=== PATIENT | female | born 1985 | race Caucasian/White ===

== ENCOUNTER 2023-09-28 23:47 | Emergency (ER) | payer OTHER, SELFPAY ==
[2023-09-29 00:05] VITALS: BP 116/72; PULSE 70; RESP 18; TEMP 36.9; O2SAT 96; BMI 29.4
--- NOTE | 2023-09-29 00:52 | ED.GENADULT ---
HPI - General Adult General Chief complaint: Fall/Minor Trauma Stated complaint: Fell down stairs and hurt her ankle - R Time Seen by Provider: 09/29/23 00:44 History of Present Illness HPI narrative: Walking down basement stairs with light off , misjudged steps and fell two steps. states the next thing she knew she was on her back, hurt her ankle. denies hitting head. states I think I may also have pink eye, but that's a separate issue. landed on carpet. presents with ice to ankle/ foot. states she took two aleve prior to arrival. rates pain 2 at rest, 9 when standing. 38-year-old woman presenting to the emergency department after falling down some stairs hurting her right ankle. Misjudged stairs when going down the basement the light out and she fell. Did not hit her head. There was no loss of conscious. No neck pain. Unclear mechanism of how she hurt her ankle. It sounds as though his may have been an inversion injury. With a great deal to bear weight. Has been icing and took Aleve. Incidentally also has thinking she might have pinkeye. Not noting allergies. Day of eye itchiness primarily. Review of Systems Status of ROS: Reports: 6 or more systems reviewed and unremarkable except as noted in History and below PFSH PFS Social History Smoking Status: Never smoker Do you use any of these nicotine containing products: None Non-prescribed substance use: denies use Exam Narrative: Exam Narrative: Pleasant. NAD. Head is atraumatic. Examination of the ankle in question right ankle does show tenderness about the bony lateral malleolus not just in the soft tissues. No navicular tenderness. No base of 5th metatarsal tenderness. No medial malleolar tenderness. No laxity to varus or valgus stressors or AP stress. There is soft tissue swelling anterior to the lateral malleolus I do not appreciate much redness about the eyes at this point. No swelling or erythema in the periorbital tissues. Const: Vital Signs, click to edit/add: Vital Signs - 24 hr 09/29/23 00:05 Temperature 98.4 F Pulse Rate [Left P ulse Oximeter] 70 Respiratory Rate 18 Blood Pressure [Ri ght Upper Arm] 116/72 Pulse Oximetry 96 Oxygen Delivery Me thod Room Air Documenting provider has reviewed patient's vital signs: yes Course Vital Signs Vital signs: Initial Vital Signs Temperature 98.4 F 09/29/23 00:05 Temperature Source Temporal Artery Scan 09/29/23 00:05 Pulse Rate 70 09/29/23 00:05 Pulse Rhythm Regular 09/29/23 00:05 Respiratory Rate 18 09/29/23 00:05 Blood Pressure 116/72 09/29/23 00:05 Blood Pressure Mean 86 09/29/23 00:05 Blood Pressure Position Supine 09/29/23 00:05 Pulse Oximetry 96 09/29/23 00:05 Oxygen Delivery Method Room Air 09/29/23 00:05 Vital Signs Temperature 98.4 F 09/29/23 00:05 Pulse Rate 70 09/29/23 00:05 Respiratory Rate 18 09/29/23 00:05 Blood Pressure 116/72 09/29/23 00:05 Pulse Oximetry 96 09/29/23 00:05 Oxygen Delivery Method Room Air 09/29/23 00:05 Temperature 98.4 F 09/29/23 00:05 Pulse Rate 70 09/29/23 00:05 Respiratory Rate 18 09/29/23 00:05 Blood Pressure 116/72 09/29/23 00:05 Pulse Oximetry 96 09/29/23 00:05 Oxygen Delivery Method Room Air 09/29/23 00:05 Medical Decision Making MDM Narrative Medical decision making narrative: With bony tenderness cannot clear ankle with [place] ankle rules. X-ray of the right ankle three view reviewed by me shows soft tissue swelling but I do not appreciate any acute bony abnormality Otherwise may be evolving a mild conjunctivitis likely viral. I hoped to supply with an Aircast here but we do not have any available. See patient discharge plan for further discussion Discharge Plan Discharge Clinical Impression: Ankle sprain, Eye irritation Patient Disposition: Home w/ Parent or Adult Condition: Stable Additional Instructions: Elevation and compression as discussed. Try to ice your ankle 2-3 times daily over the next few days. As I said I like those ice packs with screw top lids -- fill with ice and water. 6 inch Jono wrap as supplied to wrap it onto your ankle. Use crutches to get about for the majority of this next week. You might want to get an Aircast to support early mobility. I would not however try to do much walking at all on your ankle over the next 2-3 days. See handout on ankle sprain for rehabilitation recommendations. Follow-up if simply not improved in about 10 days. Generic eye ointment or refresh p.m. drops might be helpful for lubrication for your eye if it starts to get red. Watch for marked increase in swelling or redness or pain surrounding your eye or copious purulent drainage. Follow Up/Referrals: Provider,Not a Local [Primary Care Provider] - Stand Alone Forms: [employer] Info Instructions
--- NOTE | 2023-09-29 01:01 | CRLHL7_ITS ---
For Patients: As a result of the Cures Act, medical imaging exams and procedure reports are released immediately into your electronic medical record. You may view this report before your referring provider. If you have questions, please contact your health care provider. Indication: Lateral malleolar pain Technique: Three views of the right ankle Comparison: None Findings/Impression: Slight swelling along the anterior ankle with no evidence of an acute fracture or dislocation. Dictated by Lamine Bennett MD @ 09/29/2023 1:47:45 AM (Electronically Signed)
--- OUTSIDE RECORDS SUMMARY | 2023-09-29 01:09 | XMS_ITS | Patient Health Record ---
Author Organization [facility] Address [address] [place] [address] Care Team Providers Care Briar Shop Supervisor Name Role Phone Needed, Needed Primary Care Provider UnavailKEELEY Pham Unavailable [phone] ELSA MARTINEZ Unavailable [phone] Thi Arnett Unavailable [phone] Allergies No Known Allergies Reason For Referral No Information Medications Medication SIG (Take, Route, Frequency, Duration) Notes Start Date End Date Status Fluticasone Propionate 50 MCG/ACT 2 sprays Nasally Once a day for 30 day(s) 07/31/2023 Active Social History Tobacco Use: Social History Observation Description Date Details (start date - stop date) Never Smoker NA - NA Tobacco Control (Standard) Question Answer Notes Tobacco use: Nonsmoker Problems Problem Type SNOMED Code ICD Code Onset Dates Problem Status W/U Status Risk Notes Problem 15452156 Snoring (R06.83) Active confirmed Problem 29118997 Dysphonia (R49.0) Active confirmed Problem 824064423 Nasal septal deviation (J34.2) Active confirmed Problem 407230765 Nasal obstruction (J34.89) Active confirmed Problem 4346576 Weakness of voice (R49.8) Active confirmed Problem 566749650 Nasal valve collapse (M95.0) Active confirmed Vital Signs Height-cm 168.91 cm 08/12/2023 Weight-kg 84.01 kg 08/12/2023 Height 66.5 in 08/12/2023 Weight 185.2 lbs 08/12/2023 BMI 29.44 kg/m2 08/12/2023 Procedures Procedure Date Ordered Date Performed Result Body Sit e LARYNGOSCOPY, FLEXIBLE FIBEROPTIC 07/31/2023 08/01/2023 N/A RADIAL 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 PRESS OPERATOR FOR PLASTIC VOICE - Evaluation and Treatment 07/31/2023 08/02/2023 N/A RADIAL DRILL PRESS OPERATOR FOR PLASTIC VOICE - Videostroboscopy 4% Lidocaine , Nasal decongestant 07/31/2023 08/02/2023 N/A Surgery 08/12/2023 08/20/2023 scheduled 09/19/23 Encounters Encounter Location Date Provider Diagnosis [facility] [place] [id number] [place] [address] [address] [place] [address] 07/31/2023 KEELEY COPELAND Nasal obstruction J34.89 ; Nasal septal deviation J34.2 ; Nasal valve collapse M95.0 ; Weakness of voice R49.8 and Snoring R06.83 [facility] [address] [place], [place] [address] [address] [place] [address] 08/12/2023 Thifrank العليMelquiades Dysphonia R49.0 and Weakness of voice R49.8 [facility] [address] [place] [address] 08/12/2023 ELSA MARTINEZ Nasal valve collapse M95.0 ; Deviated septum J34.2 and Nasal turbinate hypertrophy J34.3 [facility] [place] [address] [address] 08/14/2023 Thirfank Arnett Dysphonia R49.0 and Weakness of voice R49.8 [facility] [address] [place] [address] 09/09/2023 ELSA MARTINEZ [facility] [address] [place], [place] [address] [address] [place] [address] 08/19/2023 KEELEY COPELAND Assessments Encounter Date Diagnosis (ICD Code) Assessment Notes Treatment Notes Treatment Clinical Notes 07/31/2023 Nasal septal deviation (ICD-10 - J34.2) 07/31/2023 Nasal obstruction (ICD-10 - J34.89) 08/12/2023 Nasal valve collapse (ICD-10 - M95.0) We discussed today's examination. She has bilateral valve collapse with inspiration. The modified Amanda maneuver is positive bilaterally. Stabilizing the external nasal valve with inspiration improve her nasal breathing. In addition she was found to have a deviated septum and turbinate hypertrophy despite medical management. I have recommended bilateral nasal valve repair with implant, septoplasty, bilateral submucous resection inferior nasal turbinates. We discussed the risks and benefits of the procedure. The risks include but are not limited to bleeding, infection, scarring, asymmetry or flow through the nose after surgery, the potential for damage to the septum such as hematoma or perforation, implant extrusion or visibility, implant infection, and need for implant removal along with possible revision surgery. She expressed understanding. 08/12/2023 Dysphonia (ICD-10 - R49.0) 3-4 visits are recommended to address goals listed below. Px is judged to be excellent due to high patient motivation and stimulability for improved phonation during sustained /z/ vs /a/. Videostrobe images were reviewed in detail with the patient with good understanding shown. Patient will show a good understanding of optimum vocal hygiene patterns with min cues: Patient will show 100% accy with laryngeal massage and other manual techniques with min cues: Patient will show 90% accy with semi-occluded vocal tract exercises with min cues: Patient will show 90% accy with resonant voice/increased vocal loudness/energy during conversational speech with min cues 08/12/2023 Weakness of voice (ICD-10 - R49.8) 08/14/2023 Dysphonia (ICD-10 - R49.0) Cont plan. Expand SOVT exercises. Consider adding SCM stretches, manual techniques, upper body stretches. Advance RV to chant, words, phrases, etc. Consider vocal communicators 08/12/2023 Deviated septum (ICD-10 - J34.2) 08/12/2023 Nasal turbinate hypertrophy (ICD-10 - J34.3) 08/14/2023 Weakness of voice (ICD-10 - R49.8) 07/31/2023 Nasal valve collapse (ICD-10 - M95.0) 07/31/2023 Weakness of voice (ICD-10 - R49.8) 07/31/2023 Snoring (ICD-10 - R06.83) 07/31/2023 Other Body mass index material was published 08/12/2023 Other Body mass index material was published Plan Of Treatment Next Appt Details Provider Name:ELSA PACE ON, 10/01/2023 09:30:00 AM, [address], [place], [address], Provider Name:ELSA PACE ON, 10/07/2023 01:00:00 PM, [address], [address], [place], [address], Insurance Providers Payer Name Payer Address Payer Phone Subscriber Number Group Number Insured Name Patient Relationship to Insured Coverage Start Date Coverage End Date [facility] [address] ZOFIA MCALLISTER [id number] Fany Gaines Self - patient is the insured Medical (General) History Medical History History ICD Code anxiety depression sleep apnea Surgical History Surgery Date(Month/Year) hysteroscopy
--- OUTSIDE RECORDS SUMMARY | 2023-09-29 01:09 | XMS_ITS | Clinical Summary ---
Author Organization [facility] Address [address] [place] [address] Care Team Providers Care Oracle Soa Developer Name Role Phone Prtii Castano MD Primary Care Provider [phone] Source Comments You are receiving this document as you are listed as the primary care provider,follow-up provider, or the patient has been referred to you for consultation.This is in compliance with the Medicare andKindred Healthcarecaid EHR Incentive Program,which states Providers who transition their patient to another setting of careor provider of care or refers their patient to another provider of care shouldprovide summary care record for each transition of care or referral. [facility] Allergies No known active allergies Medications Medication Sig Dispensed Refills Start Date End Date Status letrozole (FEMARA) 2.5 MG tablet Take 2 tablets by mouth daily as directed* Active APRI 0.15-30 MG-MCG tablet Take 1 Tablet by mouth daily. 01/11/2023 Active OVIDREL 250 MCG/0.5ML injection INJECT 250 MCG SUB-EVERY ONCE DIRECTED Active omeprazole (PRILOSEC) 20 MG capsuleIndications:A bdominal pain, left upper quadrant Take 1 Capsule (20 mg) by mouth daily. Take 1 hour before a meal. 90 Capsule 3 02/07/2023 Active sucralfate (CARAFATE) 1 g tabletIndications:Ab dominal pain, left upper quadrant Take 1 Tablet (1 g) by mouth daily at bedtime. 90 Tablet 1 02/07/2023 Active tiZANidine (ZANAFLEX) 2 MG tabletIndications:Mu scle spasm Take 0.5-2 Tablets (1-4 mg) by mouth every 6 hours as needed. 45 Tablet 1 02/07/2023 Active metFORMIN XR (GLUCOPHAGE XR) 500 MG 24 hour release tabletIndications:Hi story of PCOS Take 1 Tablet (500 mg) by mouth once every evening with a meal. 90 Tablet 3 08/20/2023 Active Active Problems Problem Noted Date Diagnosed Date Polycystic ovary syndrome 01/15/2023 Male infertility 01/15/2023 History of PCOS 01/22/2022 Irregular periods 01/22/2022 Encounters Date Type Department Care Team Description 08/18/2023 Refill [facility] [address] [place] [address] Priti Castano MD Refill (metFORMIN XR (GLUCOPHAGE XR) 500 MG 24 hour release tablet [Pharmacy Med Name: metFORMIN HCl ER Oral Tablet Extended Release 24 Hour 500 MG]) from Last 3 Months Immunizations Name Administration Dates Next Due Influenza (Flucelvax), Preserv Free QIV 05/06/19 20 Influenza IIV4 (Quadrivalent) 0.5mL (49398) 02/07 Pfizer Monovalent 12+ Purple Top 03/08/2021,07/07,07/04/2020 Family History Relation Name Status Comments Father Alive Mother Alive Social History Tobacco Use Types Packs/Day Years Used Date Smoking Tobacco: Never Passive Smoke Exposure: Never Smokeless Tobacco: Never Tobacco Cessation:Counseling Given: Not Answered Alcohol Use Standard Drinks/Week Comments Yes 2 (1 standard drink = 0.6 oz pur e alcohol) 7 drinks per week PHQ-2 Answer Date Recorded PHQ-2 Score 0 02/07/2023 Sex and Gender Information Value Date Recorded Sex Assigned at Not on file Gender Identity Not on file Sexual Orientation Not on file Last Filed Vital Signs Vital Sign Reading Time Taken Comments Blood Pressure 113/73 02/07/2023 2:12 PM CDT Pulse 62 02/07/2023 2:12 PM CDT Temperature - - Respiratory Rate - - Oxygen Saturation - - Inhaled Oxygen Concentration - - Weight 81.6 kg (180 lb) 02/07/2023 2:12 PM CDT Height 168.9 cm (5' 6.5) 02/07/2023 2:12 PM CDT Body Mass Index 28.62 02/07/2023 2:12 PM CDT Plan of Treatment Health Maintenance Due Date Last Done Comments Hep C Screening (Preventive Services) 1985 DTaP/Tdap/Td (1 - Tdap) 2004 HepB (1) 2004 Cervical Cancer Screening 12/01/20222021 (Completed) COVID-19 Vaccine (4 - 2022-2 4 season) 2022 03/08/2021, 07/25/2020, 07/04/2020 Influenza (Season Ended) 2023 022, 05/06/2019 Adult Preventive Visit 01/18/2024 , 01/17/2022 (Completed) Diabetes Screening- (based o n age and BMI) 09/14/2025 09/14/2022 Zoster/Shingles (1 of 2) 2035 HIV Screening (Preventive Services) Completed 05/08/2016 (Completed) HPV Vaccine Aged Out No longer eligi ble based on patient's age to complete this topic HepA Aged Out No longer eligi ble based on patient's age to complete this topic Hib Aged Out No longer eligi ble based on patient's age to complete this topic IPV (Polio) Aged Out No longer eligi ble based on patient's age to complete this topic MCV4 Aged Out No longer eligi ble based on patient's age to complete this topic Pneumococcal Aged Out No longer eligi ble based on patient's age to complete this topic Procedures Procedure Name Priority Date/Time Associated Diagnosis Comments HGB A1C Routine 09/14/2022 11:20 AM CDT Irregular periods from Last 3 Months or Most Recently Relevant to Health Maintenance Results * Hgb A1C (Expected: Now) - Collect in Lab (09/14/2022 11:20 AM CDT) Hemoglobin A1C 5.3 <=5.6 % 09/14/2022 4:48 PM CDT [facility] Estimated Average Glucose (Calc) 105 < 117 mg/dL 09/14/2022 4:48 PM CDT [facility] Comment:Estimated average gl ucose (eAG) converts A1c into glucose units (mg/dL) and estimates average glucose over the past approximately 3 months. The eAG reference interval (<117 mg/dL) corresponds to an A1c of <5.7%. Blood Venipuncture / Unknown 09/14/2022 11:20 AM CDT 09/14/2022 11:20 AM CDT Priti Castano MD LAB_1 [facility] [address] [address], [facility] [phone] from Last 3 Months or Most Recently Relevant to Health Maintenance Care Teams Oracle Soa Developer Relationship Specialty Start Date End Date Priti Castano MD [address] [place] [address] PCP - General Family Practice 03/23/22
--- OUTSIDE RECORDS SUMMARY | 2023-09-29 01:09 | XMS_ITS | Data Portability ---
Author Organization COLIN Cristobal BAG SEWER, [id number] Address 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 Name Role Phone [facility] Primary Care Provider Assessment Encounter Date Assessment Date Assessment LastModified by Organization Details LastModified Time 01/30/2022 01/30/2022 I spent a total of 30 minutes providing care for this patient including: preparing to see the patient, obtaining a medical history, completing a medically appropriate physical exam, completing documentation of visit information and plans in the EMR, counseling the patient and/or caregiver regarding her diagnosis, treatment options and follow up plans, as well as any necessary communication of subsequent test results to the patient, reviewing medical records, , [email or web address] Not available 01/30/2022 14:11:03 Plan of Treatment Reminders Order Date Submit Date Provider Last Modified By Organization Details Last Modified Time Details Appointments None recorded. Lab surgical pathology study 2023 024 [facility], [address] [place] [address], [address], [place], [address], 4 14:19:18 CT + NG DNA, PCR, unspecified specimen 2022 023 [facility], [address] [place] [address], [address], [place], [address], 3 13:55:43 hemoglobin A1c, QN, blood 2021 022 [facility], [address] [place] [address], [address], [place], [address], 21:42:25 dhea-sulfat e, serum 2021 [facility], [address], [address], [place], [address], 15:54:36 17-hydroxyp rogesterone , QN, serum 2021 [facility], [address], [address], [place], [address], 15:56:37 testosteron e, free + total, w/ shbg, serum 2021 [facility], [address], [address], [place], [address], 15:57:37 anti-luna santa hormone (amh), serum 2021 [facility], [address], [address], [place], [address], 15:58:25 glucose, serum or plasma 2021 [facility], [address] , [place], [address], 09:11:43 lipid panel, serum 2021 [facility], [address], [place], [address], 09:11:41 CT + NG RNA, PCR, unspecified specimen 2021 [facility], [address] [place], [address], 09:11:42 hepatitis C Ab, signal-to-c utoff, serum or plasma 2021 022 [facility], [address], [place], [address], 2 09:11:43 HBsAg (hepatitis B surface Ag), EIA, serum 2021 [facility], [address], [place], [address], 2 09:11:44 RPR (rapid plasma reagin), serum 2021 [facility], [address] [facility], [place], [address], 09:11:42 HIV 1 + 2, meaningful use set 2021 [facility], [address], [place], [address], 2 09:11:43 pap, IG + reflex HPV (16+18+45) 2021 [email or web address], [address], [place], [address], 16:11:05 Referral None recorded. Procedures hysteroscop y, surgical; with biopsy of endometrium and/or polypectomy (PROC) 2023 024 [id number] rtners[facility] [facility], [facility] [facility], [address], [place], [address], 4 02:53:30 therapeutic activities, direct patient contact (PROC) 2023 024 [email or web address] [id number] rt[facility], [address] [facility], [address], [place], [address], 4 09:56:18 venipunctur e routine (PROC) 2021 022 [email or web address] Not available 13:27:42 Surgeries None recorded. Imaging US, pelvis 2021 022 [email or web address] [id number] rtners_berna le, [address] [facility], [address], [place], [address], 2 17:49:19 US, transvagina l 2021 022 [email or web address] rtners[facility] o[facility], [address] [facility], [address], [place], [address], 2 11:38:19 US, transvagina l 2021 022 DAQUAN [id number] rtners[facility], [address] [facility], [address], [place], [address], 2 13:16:01 US, pelvis 2021 022 [email or web address] [id number] rtners[facility], [address] [facility], [address], [place], [address], 2 12:51:58 Medication Orders ketorolac 60 mg/2 mL intramuscul ar solution 2023 024 [email or web address] Not available 4 10:22:48 oxycodone 5 mg tablet 2022 023 [facility], [address] [facility], [place], [address], 3 13:38:49 Microgestin 1/20 (21) 1 mg-20 mcg tablet 2021 022 [id number], [address] [place], [id number], 12:47:28 Patient TargetsNo targets recorded. Patient Instructions Encounter Date Encounter Id Patient Instructions Last Modified By Organization Details Last Modified Time 01/15/2023 [id number] A healthy lifest yle: care instructions calbertin Not available 01/15/2023 13:38:46 skin cancer prevention: care instructions calbertin Not available 01/15/2023 13:38:46 Well Visit, Ages 18 to 65: Care Instructions calbertin Not available 01/15/2023 13:38:47 gonorrhea and chlamydia: about these tests calbertin Not available 01/15/2023 13:38:46 Cervical Cancer Screening: Women should begin having a Pap smear at age 21. Women aged 21-29 should be screened every 3 years. Women aged 30-65 should be screened every 3-5 years. Your doctor may stop performing pap smear screenings if you have had a hysterectomy or are age 65 or above, if you meet certain criteria: ? ? Three consecutive negative cytology results or two consecutive negative HPV results within the previous 10 years with the most recent test within the past 5 years. ? ? No history of a high-grade precancerous lesions (cervical intraepithelial neoplasia grade 2 or grade 3 or cervical cancer within the past 20 years). Screening for Sexually Transmitted Diseases: Chlamydia and Gonorrhea are two of the most common sexually transmitted diseases with 75% of Chlamydial and 68% of Gonococcal infections showing no symptoms. Women should be screened for Chlamydia and Gonorrhea that are age 25 and under or women over age 25 at increased or special risk. Women should be screened for HIV aged 13-64 or at increased risk. 84% of cases are attributed to heterosexual sex. Women at increased or special risk or requesting STI screening should be screened for Hepatitis B and C, Syphilis, Herpes, Trichomonas. Vaccination Recommendations for Ages 27-45: Screenings for vaccination status should be based on the CDC Adult Vaccine Schedule. Recommendations include seasonal flu vaccine, Hepatitis A&B, and the Varicella series for those who are unvaccinated and have no history of infection. Completion of the HPV vaccine can be considered if desired and you have not been previously vaccinated. All eligible women should receive full vaccination against COVID-19. If you are actively attempting , you should not receive live vaccines. Contraception Information: If you are considering or participating in a heterosexual relationship involving vaginal intercourse it is recommended that you have a gynecologic visit to discuss contraception if you do not wish to become now.? ? Your visit will include a discussion about which contraception option is best for you based on your medical history, ease of use and personal preference.? ? Once a method is identified as the best option, your healthcare provider will provide education on how to most effectively use the method chosen, when to start, possible side effects and efficacy at preventing . If you wish to discontinue or change to another method of contraception, please discuss possible options with your healthcare provider. Hereditary Cancer Screening: Your provider will review your family history of any cancers in your first- and second-degree relatives if you know that information. A referral for genetic counseling may be made if your family history includes a diagnosis of cancer at a young age, multiple cancers of the same type in different family members of the same side, or multiple primary cancers in one individual, or multiple family members on the same side affected by a combination of breast, ovarian, endometrial, and/or gastrointestinal cancers. Preconception Counseling: If you are of reproductive age who are actively planning or not preventing should have a visit to discuss their reproductive plan.? ? The goals of this visit are to identify any risks or barriers to healthy outcomes and to receive education on possible options for health management to reduce any risks prior to becoming .? ? Your provider will ask you about your health history in order to identify possible chronic medical conditions that should be optimized prior to for better outcomes and will make referrals if needed.? ? Your provider will also review the medications that you are currently taking that may be harmful in and talk with you about any that may need to be stopped.? ? Your provider will review your vaccination status with you to identify if there are any that may be recommended as well as discuss substance abuse and possible environmental exposures.? ? Family history will be obtained to identify any potential inheritable conditions and refer you to a genetic counselor if necessary.? ? Your provider will ask you to start taking a folic acid supplementation of 400-800mcg daily to prevent neural tube defects if there is a chance you may become . Genetic Testing for Inheritable Disorders (Carrier Screening): The [employer] recommends that all women, and preferably all women with a desire to become , consider having a blood test to assess their risk of carrying a baby with a significant inherited disorder, such as cystic fibrosis. This test only needs to be performed once in a lifetime (assuming there are no improvements in testing in the future). A positive test indicates that there is a risk for the disease, however, a baby can only be affected with the disease if both parents carry the same gene. Therefore, the father of the baby would also need to be tested. [email or web address] Not available 01/07/2023 10:20:43 01/30/2022 [id number] handling fee* [email or web address] Not available 1 13:27:41 09/05/20216114232 Options are ex m gmt with OCs or laparoscopic removal. Risks and benefits reviewed including torsion with need for oopherectomy. All questions answered. She verbalized understanding.She wants to try the pills and will repeat the USN after her next menses. 15 minutes reviewing USN anddiscussing plan. Not available 09/05/2021 13:35:09 09/01/[id number] venous blood draw* [email or web address] Not availa ble 09/01/2021 14:24:18 handling fee* [email or web address] Not available 14:24:19 - Encouraged anali ast self-awareness and monthly breast exams - Encouraged regular exercise and healthy diet - Reviewed family cancer history-she will get a copy of her result and if not a full panel, will offer Empower. Will do USN for pelvic pain and then discuss. Info on egg freezing and will refer to [email or web address] Not available 09/05/2021 13:13:15 Reason for Referral None Reported. Results Created Date Observation Date Name Description Value Unit Range Abnormal Flag LastModifiedBy Organization Detail LastModifiedTime 09/02/19 22 09/03/2021 LIPID PANEL cholesterol, total 240 mg/dL 100-19 9 above high normal Not Available [facility] ([facility]) [address] [facility], [place], [address], 09/06/2021 09:11:41 09/02/19 22 09/03/2021 LIPID PANEL triglyceride s 163 mg/dL 0-149 above high normal Not Available [facility] ([facility]) [address] [facility], [place], [address], 09/06/2021 09:11:41 09/02/19 22 09/03/2021 LIPID PANEL HDL cholesterol 86 mg/dL >39 Not Available [facility] ([facility]) [address] [place], [address], 09/06/2021 09:11:41 09/02/19 22 09/03/2021 LIPID PANEL VLDL cholesterol bg 28 mg/dL 5-40 Not Available [facility] ([facility]) [address] [place], [address], 09/06/2021 09:11:41 09/02/19 22 09/03/2021 LIPID PANEL LDL chol calc ([facility]) 126 mg/dL 0-99 above high normal Not Available [facility] ([facility]) [address] [place], [address], 09/06/2021 09:11:41 09/02/19 22 09/03/2021 LIPID PANEL comment: UNIT NURSE Not Available [facility] ([facility]) [address] [place], [address], 09/06/2021 09:11:41 09/02/19 22 09/06/2021 CHLAM YDIA/ GC AMPLI FICAT ION chlamydia trachomatis, CHRISTIANO Negati ve negati ve Not Available [facility] ([facility]) [address] [place], [address], 09/06/2021 09:11:42 09/02/19 22 09/06/2021 CHLAM YDIA/ GC AMPLI FICAT ION neisseria gonorrhoeae, CHRISTIANO Negati ve negati ve Not Available [facility] ([facility]) [address] [place], [address], 09/06/2021 09:11:42 09/02/19 22 09/06/2021 RPR, RFX QN RPR/C ONFIR M TP RPR Non Reacti ve non reacti ve Not Available [facility] ([facility]) [address] [facility], [place], [address], 09/06/2021 09:11:42 09/02/19 22 09/03/2021 HIV AB/P2 4 AG WITH REFLE X HIV Ab/P24 Ag screen Non Reacti ve non reacti ve Not Available [facility] ([facility]) [address] [facility], [place], [address], 09/06/2021 09:11:42 09/02/19 22 09/05/2021 HCV ANTIB DARNELL hep C virus Ab <0.1 s/co_ ratio 0.0-0. 9 Not Available [facility] ([facility]) [address] [facility], [place], [address], 09/06/2021 09:11:43 09/02/19 22 09/03/2021 GLUCO SE glucose 89 mg/dL 65-99 Not Available [facility] ([facility]) [address] [place], [address], 09/06/2021 09:11:43 09/02/19 22 09/05/2021 HBSAG SCREE N HBsAg screen Negati ve negati ve Not Available [facility] ([facility]) [address] [place], [address], 09/06/2021 09:11:44 09/02/19 22 09/06/2021 IGP,R FX APT HPV ASCU, 16/18 ,45 interpretati on NILM Not Available [facility] (Lab) [address] [facility] [address], [place], [address], 09/06/2021 16:09:55 09/02/19 22 09/06/2021 IGP,R FX APT HPV ASCU, 16/18 ,45 category: NIL Not Available [facility] (Lab) [address], [place], [address], 09/06/2021 16:09:55 09/02/19 22 09/06/2021 IGP,R FX APT HPV ASCU, 16/18 ,45 adequacy: ENDO Not Available [facility] (Lab) [address] [place] [address], [place], [address], 09/06/2021 16:09:55 09/02/19 22 09/06/2021 IGP,R FX APT HPV ASCU, 16/18 ,45 clinician provided ICD10: Ari espana Not Available [facility] (Lab) [address] [place] [address], [place], [address], 09/06/2021 16:09:55 09/02/19 22 09/06/2021 IGP,R FX APT HPV ASCU, 16/18 ,45 performed by: Ari espana Not Available [facility] (Lab) [address] [place] [address], [place], [address], 09/06/2021 16:09:55 09/02/19 22 09/06/2021 IGP,R FX APT HPV ASCU, 16/18 ,45 note: Ari espana Not Available [facility] ([facility]) [address] [place] [address], [place], [address], 09/06/2021 16:09:55 09/02/19 22 09/06/2021 IGP,R FX APT HPV ASCU, 16/18 ,45 test methodology: Ari espana Not Available [facility] ([facility]) [address] [place] [address], [place], [address], 09/06/2021 16:09:55 09/02/19 22 09/06/2021 IGP,R FX APT HPV ASCU, 16/18 ,45 . Ari espana Not Available [facility] ([facility]) [address] [place] [address], [place], [address], 09/06/2021 16:09:55 01/31/20 22 01/30/2022 TESTO STERO NE FREE TOTAL AND SEX HORMO NE ELENA NG GLOBU KEISHA free testosterone calculated 0.45 NG/dL Not Available [address], [place], [address], 02/08/2022 11:37:03 01/31/20 22 01/30/2022 TESTO STERO NE FREE TOTAL AND SEX HORMO NE ELENA NG GLOBU KEISHA testosterone total 47 NG/dL 8-60 Not Available [address], [place], [address], 02/08/2022 11:37:03 01/31/20 22 01/30/2022 17 OH PROGE STERO NE 17 oh progesterone 209 NG/dL <=630 Not Available [address], [place], [address], 02/08/2022 11:37:05 01/31/20 22 01/30/2022 DHEA SULFA TE DHEA sulfate 187 ug/dL 35-430 Not Available [address], [place], [address], 02/08/2022 11:37:37 01/31/20 22 01/30/2022 ANTI- MULLE JAY HORMO NE ([facility]) anti-mulleri an hormone 4.740 NG/mL 0.150- 7.500 Not Available [address], [place], [address], 02/08/2022 11:37:39 01/31/20 22 01/30/2022 HEMOG LOBIN A1C hemoglobin A1C CANCEL ED Not Available [address], [place], [address], 02/09/2022 21:42:25 01/16/20 23 01/15/2023 GC/CH LAMYD IA BY PCR chlamydia trachomatis Negati ve negati ve Not Available [address], [place], [address], 01/16/2023 13:55:43 01/16/20 23 01/15/2023 GC/CH LAMYD IA BY PCR neisseria gonorrhoeae Negati ve negati ve Not Available [facility] [address], [place], [address], 01/16/2023 13:55:43 05/15/19 24 05/15/2023 SURGI BG PATHO LOGY EXAM surgical pathology exam SEE RESULT S BELOW Not Available [facility] [address] [facility] [address], [place], [address], 05/17/2023 14:19:18 09/06/19 22 09/05/2021 US, trans vagin al No observ ation record ed. [email or web address] [address] [address], [place], [address], 09/05/2021 14:33:15 10/19/19 22 10/18/2021 US, trans vagin al No observ ation record ed. [email or web address] [address], [place], [address], 10/19/2021 14:34:59 12/02/19 22 12/01/2021 US, pelvi s No observ ation record ed. [email or web address] [address], [place], [address], 12/13/2021 13:59:30 05/07/19 24 05/07/2023 US, trans vagin al No observ ation record ed. [email or web address] [facility] [address], [place], [address], 05/07/2023 17:01:27 Result Notes None recorded. Problems Name Status Onset Date Resolution Date Notes Provider Name and Address Organization Details Recorded Time Primary infertility Active 01/16/20 [place] [address] [facility], [place], [address], [place] [facility] BAG SEWER 01/15/2023 11:42:33 Polycystic ovary syndrome Active 01/16/20 23 [place] [address] [facility], [place], [address], [facility] BAG [facility]WER 01/15/2023 12:45:53 Male infertility Active 01/16/20 23 [place] [address] [facility], [place], [address], [facility] BAG SEWER 01/15/2023 12:46:04 Problem Notes None recorded. Procedures Surgical History Date Name Laterality Status Provider Name and Address Organization Details Recorded Time 05/15/19 24 Operative [place]steroscopy [place] [address] [facility], [place], [address], [facility] BAG SEWER 05/15/2023 09:46:32 01/16/20 23 [facility] Annual Well-Woman Visit age 18-39 [place] [address] [place] [address] completed Marleni Pittman null, [facility] BAG SEWER 01/07/2023 10:20:44 09/02/19 22 Date of Last Pap Smear completed Marleni Pittman null, [facility] BAG SEWER 01/07/2023 10:22:27 10/07/19 21 Date of Last Mammogram completed Cj Hawkins(TERM) null, [facility] BAG SEWER 09/01/2021 13:10:23 Imaging Results Imaging Date Name Status LastModified by Organization Details LastModified Time 09/05/2021 US, transvaginal completed [email or web address] [address], [place], [address], 09/05/2021 14:33:15 10/18/2021 US, transvaginal completed [email or web address] [address], [place], [address], 10/19/2021 14:34:59 12/01/2021 US, pelvis completed [email or web address] [address], [place], [address], 12/13/2021 13:59:30 05/07/2023 US, transvaginal completed [email or web address] [facility] [address], [place], [place], [address], 05/07/2023 17:01:27 Procedure Notes None recorded. Medical Equipment None Reported. Allergies No known drug allergies Medications Name Sig Start Date Stop Date Status Note LastModified by Organization Details LastModified Time tizanidine 2 mg tablet Take 0.5 to 2 Tablets (1-4 mg) by mouth every 6 hours as needed* active Not Available Not Available No t Available Apri 0.15 mg-0.03 mg tablet TAKE 1 TABLET BY MOUTH EVERY DAY; ACTIVE TABLETS ONLY CONTINUOU SLY.* active Not Available Not Available No t Available azithromyci n 250 mg tablet Take 2 Tablets (500 mg) by mouth daily for 1 day, THEN decrease to 1 Tablet (250 mg) by mouth daily for 9 days. active Not Available Not Available No t Available sulfamethox azole 800 mg-trimetho prim 160 mg tablet Take 1 Tablet by mouth two times a day for 21 days. 01/30 completed Not Available Not Available Not Available doxycycline monohydrate 100 mg capsule Take 2 capsules (200mg) by mouth today for one dose, then take 1 capsule twice daily for 4 additiona l days. Take with food.* active Not Available Not Available No t Available cephalexin 500 mg capsule Take 1 capsule by mouth 2 (two) times a day for 10 days. Maximum 1000mg per day, Do not use if anaphylax is to Penicilli n. 01/30 completed Not Available Not Available Not Available omeprazole 20 mg capsule,del ayed release Take 1 Capsule (20 mg) by mouth once daily 1 hour before a meal.* active Not Available Not Available No t Available norethindro ne acetate 1 mg-ethinyl estradiol 20 mcg tablet TAKE 1 TABLET BY MOUTH EVERY DAY 01/30 completed Not Available Not Available Not Available alprazolam 2 mg tablet Take 1 tab by mouth 30 minutes prior to procedure active Not Available Not Available No t Available letrozole 2.5 mg tablet Take 2 tablets by mouth daily as directed* active Not Available Not Available No t Available methylpredn isolone 4 mg tablets in a dose pack Take 6 tablets by mouth on day 1 and reduce by one tablet daily until gone per package direction s 01/30 completed Not Available Not Available Not Available ketorolac 60 mg/2 mL intramuscul ar solution Inject 1 mL by intramusc ular route. 2023 active Not Available Not Available Not Avai lable metformin ER 500 mg tablet,exte nded release 24 hr Take 1 Tablet (500 mg) by mouth once every evening with a meal. 01/15 completed Not Available Not Available Not Available amoxicillin 875 mg-potassiu m clavulanate 125 mg tablet Take 1 Tablet by mouth two times a day for 20 days. 01/30 completed Not Available Not Available Not Available oxycodone 5 mg tablet Take 1 tab by mouth 30 minutes prior to procedure active Not Available Not Available No t Available Ovidrel 250 mcg/0.5 mL subcutaneou s syringe INJECT 250 MCG SUB-EVERY ONCE DIRECTED active Not Available Not Available No t Available 01/15 completed Not Available Not Available Not Available cholecalcif tyson (vitamin D3) 1,250 mcg (50,000 unit) capsule Take 1 Capsule (50,000 Units) by mouth once every week 01/30 completed Not Available Not Available Not Available Flowflex COVID-19 Antigen Home Test kit active Not Available Not Available Not Available Paxlovid 300 mg (150 mg x 2)-100 mg tablets in a dose pack Take 300/100 mg twice daily for 5 days according to package instructi ons 01/30 completed Not Available Not Available Not Available Vitals Date Recorded Body weight Body mass index (BMI) Body height Systolic blood pressure Diastolic blood pressure Provider Name and Address Organization Details Last Updated DateTime 09/01/2021 02859.95 g 27.4 kg/m2 170.18 cm 115 mm[Hg] 70 mm[Hg] Cj Hawkins(T ERM) [facility] BAG SEWER 2 13:13:28 Date Recorded Body height Body mass index (BMI) Body weight Systolic blood pressure Diastolic blood pressure Provider Name and Address Organization Details Last Updated DateTime 09/05/2021 170.18 cm 27.1 kg/m2 34745.48 g 116 mm[Hg] 66 mm[Hg] Jovan hernandez (TERMED) [facility] BAG SEWER 2 12:58:22 Date Recorded Body height Body mass index (BMI) Body weight Heart rate Systolic blood pressure Diastolic blood pressure Provider Name and Address Organization Details Last Updated DateTime 2 170.18 cm 28.3 kg/m2 89871.2 2 g 69 /min 98 mm[Hg] 62 mm[Hg] Marleni Pittman [place] [facility] [place] BAG SEWER 2 12:59:02 Date Recorded Body height Body mass index (BMI) Body weight Heart rate Systolic blood pressure Diastolic blood pressure Provider Name and Address Organization Details Last Updated DateTime 3 170.18 cm 28.3 kg/m2 37078.2 2 g 67 /min 119 mm[Hg] 76 mm[Hg] Marleni Pittman [place] [facility] [place] [facility] 3 12:21:28 Social History Question Answer Notes LastModified by Organizat ion Details LastModified Time Tobacco Smoking Status Never Smoker Cj Hawkins(TERM) null, [facility] 09/01/2021 13:12:11 Do You Have An Advance Directive? No [email or web address] Information not available 09/01/2021 What Is Your Level Of Alcohol Consumption? Moderate [email or web address] Information not available 09/01/2021 Is Blood Transfusion Acceptable In An Emergency? Yes [email or web address] Information not available 09/01/2021 What Is Your Level Of Caffeine Consumption? Moderate [email or web address] Information not available 01/15/2023 Are You Currently Employed? Yes [email or web address] Information not available 09/01/2021 What Type Of Diet Are You Following? REGULAR [email or web address] Information not available 09/01/2021 What Is The Highest Grade Or Level Of School You Have Completed Or The Highest Degree You Have Received? [id number] [email or web address] Information not available 01/30/2022 What Is Your Occupation? Data [email or web address] Information not available 09/01/2021 History Of Domestic Violence No [email or web address] Information no t available 09/01/2021 Spouse/Partners Name Magen Information not available 01/30/2022 Ethnic Background White Or Information not available 09/01/2021 Are You Passively Exposed To Smoke? No [email or web address] Information no t available 09/01/2021 What Was The Date Of Your Most Recent Tobacco Screening? 01/15/2023 [email or web address] Information not available 01/15/2023 What Is Your Relationship Status? Domestic Partner [email or web address] Information not available 01/15/2023 Are You Sexually Active? Yes Information not available 09/01/2021 Do You Use Any Illicit Or Recreational Drugs? No [email or web address] Information not available 09/01/2021 Has Tobacco Cessation Counseling Been Provided? No Information not available 09/01/2021 Have You Recently Traveled Abroad? No [email or web address] Information not available 09/01/2021 Are You Currently In School? No [email or web address] Information not available 09/01/2021 Do You Or Have You Ever Used Any Other Forms Of Tobacco Or Nicotine? No Information not available 09/01/2021 Sex: Female Functional Status Question Answer Note LastModified by Organizat ion Details LastModified Time What is your exercise level? Occasional [email or web address] Information not available 09/01/2021 Mental Status None recorded. Family History Relationship Description Onset Age of this Age Resolved Age Notes Paternal Grandmother Malignant tumor of breast Maternal Grandmother Malignant tumor of breast Paternal Aunt Malignant tumor of breast Maternal Grandfather Diabetes mellitus Paternal Grandfather Myocardial infarction Medical History No medical history recorded. Gynecological History Statement/Question Response History of Vulvar Dysplasia N HPV Test Negative Date of Last Mammogram 10/06/2020 Date of LMP 01/09/2023 History of Cervical Dysplasia N Menstrual Cycle Length (days) 28 Sexual Orientation Heterosexual Date of Last Diabetes Screening 10/07/19 23 History of Infertility N Sexually Active Y Date of Last Colonoscopy History of PCOS N History of Endometriosis N History of Abnormal PAP N History of Recurrent Ovarian Cysts Y Total lifetime partners Less than 5 Date of last bone density Age at Menarche: 12 History of Sexually Transmitted Infectio n N HPV Vaccine Complete Current Control Method None History of Fibroids N Date of Last Pap Smear 09/01/2021 Date of Last Cholesterol Screening 10/06 Obstetrics History GPAL:G 0 P 0 0 0 0 Type Value Multiple Births 0 Full Term 0 Induced 0 Spontaneous 0 Premature 0 Living 0 Ectopics 0 Total 0 Past Encounters Encounter ID Performer Location Encounter Start Date Encounter Closed Date Diagnosis/Indication Diagnosis SNOMED-CT Code [id number] Joselo MD [address] [place] [phone] 09/01/2021 13:01:59 09/05/2021 10:19:13 Screening for malignant neoplasm of cervix [id number] Gynecologi c examination [id number] Family his tory of breast cancer 787038580 Venereal d isease screening 660146236 Left lower quadrant pain 930793078 [id number] MD MIGUEL ANGEL [address]orman[address] [facility] [place] [address] 09/05/2021 12:27:58 09/05/2021 12:51:58 Family history of breast cancer [id number] MD [facility]IGUEL ANGEL [address] [facility],[address] [place] [phone] 09/05/2021 12:30:46 09/05/2021 14:35:05 Cyst of left ovary [id number] MD [facility] [address] [place] [address] [address] [place] [address] 10/18/2021 18:16:48 10/18/2021 18:53:09 Cyst of left ovary [id number] MD JENNA Dorman_NITA BARONE[address], [address] [address] 12/01/2021 14:30:59 12/01/2021 15:13:49 Pain in pelvis 22721502 [id number] MD MIGUEL ANGEL WAN[address], [address] [address] 01/30/2022 12:38:29 01/30/2022 14:24:29 Polycystic ovary syndrome [id number] MD MIGUEL ANGEL WAN[address] [place] [phone] 01/15/2023 12:10:16 01/15/2023 15:29:07 Gynecologic examination [id number] Primary infertility 2971 97623 Male infertility 8033509 Venereal d isease screening 030363566 Pre-surger y evaluation [id number] MIRANDA WATERMAN MD [id number] [address] [place] [address] 05/15/2023 09:29:28 05/20/2023 13:56:50 Endometrial polyp 1581827639 Health Concerns Section Related Observation LastModified by Organization Detai ls LastModified Time None Recorded Concern Status LastModified by Organization Details LastModified Time None Recorded Advance Directives Directive N: Payers Encounter Date Sequence Insurance Name Policy Number Policy [place] Covered Member ID [place] Member ID Guarantor Name 05/15/2023 1 [facility] [employer] ([place] [id number] Fany Keshav [id number] Fany Keshav 01/15/2023 1 [facility] [employer] [place] [id number] Fany Keshav [id number] Fany Keshav 01/30/2022 1 [facility] [place] [employer] [place] [id number] Fany Keshav [id number] Fany Keshav 12/01/2021 1 [facility] [place] [employer] [place] [id number] Fany Keshav [id number] Fany Keshav 10/18/2021 1 [facility] - [employer] [place] [id number] Fany Keshav [id number] Fany Keshav 09/05/2021 1 [employer] [facility] - [employer] [place] [id number] Fany Keshav [id number] Fany Keshav 09/05/2021 1 [employer] [facility] [place] [id number] Fany Keshav [id number] Fany Keshav 09/01/2021 1 [facility] [place] [employer] [id number] Fany Keshav [id number] Fany Keshav Notes Date Note Type Note Provider Name and Address Organization Details Recorded Time 09/01/2021 text/html HPI Notes: Annua l Premenopausal ([facility]) Reported by patient. Patient Relationship To Practice: established patient; new patient Current Medical History: no active medical problems Relevant Family History: family history of breast cancer; no family history of ovarian cancer; no family history of uterine cancer; no family history of colon cancer; no family history of blood clots/DVT; She tested negative for BRCA in [place] Menstrual History: Frequency of Menses: monthly; Duration of Flow: 5 days Contraceptive Method: nothing; satisfied: Sexually Active: Yes: same partner STI Screen: desires Health/Prevention: Exercise: yes; Breast Self Exam: yes; Seat Belt Use: yes; Safe Sex yes; Tobacco Use: no; Safe at home: yes Mammogram: up-to-date; Pap Smear +/- HPV Cotesting: due Thyroid/Lipid Screening: due Colonoscopy: not applicable Notes: Having some mile LLQ pain intermittently for the past few weeks. No GI/ symptoms[place] [id number] [facility] [address], [place], [address], [facility] 09/05/2021 13:13:21 09/05/2021 text/html HPI Notes: Here to review USN. See report for description. Pain is mild and no vomiting [place] [address], [place], [address], [facility] 09/05/2021 13:36:01 01/30/2022 text/html HPI Notes: Infertility Consult ([facility]) Reported by patient. Patient? s relationship with the practice: established patient Duration of Unprotected [place]: Days, Weeks, 1 Months, Years Length to conceive with previous : no previous Age of menarche 12 Last Normal Menses: 01/01/2022 Frequency of Normal Menses: monthly Flow of Normal Menses: Duration: 5 days; Quantity: moderate; Number of Heavy Days: 5 Previously Tried Contraceptive Methods: spermicide, barrier method, condom; oral contraceptive pills; NuvaRing; levonorgestrel containing IUD- 5 YR Context: history of PCOS; Possible PCOS Female Factors: smoking: no; ALICE exposure: no Name of Partner: Lena Us 08/07/1979 Partner's Allergies: nkda Medical/Surgical history: testicular injury/swelling; reversed vasectomy 11/2021 history: previous children from another relationship; x6 # Lifetime partners: >5 Nutrition & exercise habits: Regular diet and exercise 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 She states that on her last ultrasound she was told that maybe she might have PCOS. She does not know what this means. She has had irregular periods most of her life and then she lost some weight and these regulated for the last year. She then had COVID in August and has since had a regular periods and regained the weight. Her partner just had a vasectomy reversal in November and has not followed up for a semen analysis yet. She does not know if she has issues with fertility as she has not attempted for yet. She was on control pills 5 to 6 years ago. She has had electrolysis of hair around her nipples and 1 area on her upper lip. She denies acne and oily [place] [id number] [facility],[address], [place], [address], [facility] 01/30/2022 14:11:42 01/15/2023 text/html HPI Notes: [facility] Annual Well-Women Visit Age 30-39 Reported by patient. Current Medical History: active medical problems Relevant Family History: no family history of ovarian cancer; no family history of uterine cancer; no family history of colon cancer; no family history of blood clots/DVT; has a family history of breast cancer Last Pap smear: last Pap smear was normal; last HPV negative Risk factors for cervical cancer (CMS): no risk factors Medical risk factors: no historical risk factors Contraceptive Method: satisfied with current method Sexually Active: Yes: same partner STI Screen: due Menstrual cycle: Frequency of Menses: irregular; Duration of Flow: 5 days; Quantity of Flow: moderate Fany is a 37 year old who presents for an annual exam She is undergoing work up for infertility with [place] - is going to do IUI. Her insurance is changing to covering CRM but she doesn't necessarily want to switch clinics. Her partner has a history of vasectomy and reversal with low/no sperm count. She has PCOS and has been trying for 3 years for . She has not had GC testing and will be having an HSG tomorrow[place] [id number] [facility],[address], [place], [address], [facility] 01/15/2023 14:17:28 05/15/2023 text/html HPI Notes: Jose moralez is here for a hysteroscopy polypectomy prior to infertility treatment[place] [id number] [facility],[address], [place], [address], [facility] 05/15/2023 10:09:40 OBGyn Episode No OBEpisode recorded.
--- OUTSIDE RECORDS SUMMARY | 2023-09-29 01:09 | XMS_ITS | Clinical Summary ---
Author Organization [facility] Address [address] [place] [address] Care Team Providers Care Security Representative Name Role Phone Priti Castano MD Primary Care Provider + Social History Tobacco Use Types Packs/Day Years Used Date Smoking Tobacco: Never Assessed Adolescent Education Answer Date Record ed Getting School Help Needed Not on file 12/29 Sex and Gender Information Value Date Recorded Sex Assigned at Not on file Gender Identity Not on file Sexual Orientation Not on file Plan of Treatment Health Maintenance Due Date Last Done Comments ADVANCE CARE PLANNING 1985 ANNUAL REVIEW OF HM ORDERS 1985 GLUCOSE 1985 HIV SCREENING 2000 HEPATITIS C SCREENING 2003 HEPATITIS B IMMUNIZATION (1 of 3 - 19+ 3-dose series) 2004 PAP 2006 DTAP/TDAP/TD IMMUNIZATION (1 - Tdap) 2010 COVID-19 Vaccine (4 - 2022-2 4 season) 2022 03/08/2021, 07/25/2020, 07/04/2020 PHQ-2 (once per calendar year) 2023 INFLUENZA VACCINE (Season Ended) 2023 02/25/2022, 05/06/2019 YEARLY PREVENTIVE VISIT 01/16/2024 01/16/20, 01/15/2023, 09/01/2021 HPV IMMUNIZATION Aged Out No longer e ligible based on patient's age to complete this topic IPV IMMUNIZATION Aged Out No longer e ligible based on patient's age to complete this topic MENINGITIS IMMUNIZATION Aged Out No l onger eligible based on patient's age to complete this topic Pneumococcal Vaccine: Pediatrics (0 to 5 Years) and At-Risk Patients (6 to 64 Years) Aged Out No longer eligible b ased on patient's age to complete this topic RSV MONOCLONAL ANTIBODY Aged Out No l onger eligible based on patient's age to complete this topic Care Teams Security Representative Relationship Specialty Start Date End Date Priti Castano MD [address] [place] [id number] PCP - General 01/16/23
--- OUTSIDE RECORDS SUMMARY | 2023-09-29 01:09 | XMS_ITS | Encounter Summary ---
[facility] Address [address] [address] Care Team Providers Care Manager Engagement Name Role Phone Priti Pollock MD Primary Care Provider [phone] Reason for Visit * Reason Comments Refill metFORMIN XR (GLUCOP ROSA XR) 500 MG 24 hour release tablet [Pharmacy Med Name: metFORMIN HCl ER Oral Tablet Extended Release 24 Hour 500 MG] Encounter Details Date Type Department Care Team (Late st Contact Info) Description 08/18/2023 [place] [facility] [place] [address] [place] [address] Priti Pollock MD [address] [place] [address] Refill (metFORMIN XR (GLUCOPHAGE XR) 500 MG 24 hour release tablet [Pharmacy Med Name: metFORMIN HCl ER Oral Tablet Extended Release 24 Hour 500 MG]) Social History Tobacco Use Types Packs/Day Years Used Date Smoking Tobacco: Never Passive Smoke Exposure: Never Smokeless Tobacco: Never Alcohol Use Standard Drinks/Week Comments Yes 2 (1 standard drink = 0.6 oz pur e alcohol) 7 drinks per week PHQ-2 Answer Date Recorded PHQ-2 Score 0 02/07/2023 Sex and Gender Information Value Date Recorded Sex Assigned at Not on file Gender Identity Not on file Sexual Orientation Not on file documented as of this encounter Nursing Notes * Priti Pollock MD - 08/20/2023 4:41 PM CDT Called patient to discuss the metformin. Will start the metformin at this time. This would be just fine with IUI. Discussed that this may be able to help with getting as well. Patient verbalized understanding of the plan. No other acute issues today. Priti Pollock MD * Caridad Oliver RN - 08/20/2023 4:13 PM CDT Verified patient identity using 3 identifiers. 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 This is why it was discontinued. The patient reports that she has been doing some research and there is information stating that metformin helps with PCOS. The patient is wondering if it would be chamberlain to start the metformin? Reports she would also like to know if metformin has a negative impact with IUI. Currently taking , coq-10, and tamar-inosital. RN unable to fill metformin per standing order as it has been discontinued. * Evelyn Malik RN - 08/20/2023 3:54 PM CDT Further Assistance Needed on Refill from Nursing/Triage Requested medication was discontinued Next steps: Nursing/Triage to complete refill as appropriate. Requested Prescriptions Pending Prescriptions Disp Refills metFORMIN XR (GLUCOPHAGE XR) 500 MG 24 hour release tablet [Pharmacy Med Name: metFORMIN HCl ER Oral Tablet Extended Release 24 Hour 500 MG] 90 Tablet Sig: Take 1 Tablet (500 mg) by mouth once every evening with a meal. * Norma Lirianowcomm - 08/18/2023 3:57 PM CDT metFORMIN XR (GLUCOPHAGE XR) 500 MG 24 hour release tablet [Pharmacy Med Name: metFORMIN HCl ER Oral Tablet Extended Release 24 Hour 500 MG] Metformin -> This medication was discontinued on 11/12/2022 by GABRIEL MARTINEZ. -> Unable to determine if sig has changed, review required. -> Refill x 3 months (until due for a(n) Cr check and HBA1C check) -> Calculate the quantity and number of refills manually. Last qualifying visit: 02/07/2023 (with PRITI POLLOCK) Next scheduled visit: None Last ordered by PRITI POLLOCK: 01/17/2022 (578 days ago) QTY: 90, Refills: 3, Sig: take 1 tablet (500 mg) by mouth every evening with a meal. (changed) Cr: 0.89 mg/dL on 09/14/2022 HBA1C: 5.3 % on 09/14/2022 [facility] Embedded Refills, Reference: [id number], 08/18/2023 3:57:41 PM CDT, Pool: Refill Centralized Services - Primary Care ([id number]) * Norma Lirianowtimur - 08/18/2023 3:57 PM CDT The following lab order(s) may be associated with the following Patient Result Comment (Entered by Priti Pollock MD at 09/14/2022 9:42 PM): BASIC METABOLIC PANEL Fany, Your A1c shows that you do not have diabetes.Your thyroid test was within normal range and shows that you do not have thyroid disease. Your FSH shows you are not in menopause. Your estrogen isat the low end of normal. Your progesterone is low. Your electrolytes are within normal range, yourkidney function is normal.Your hemoglobin is within normal range and does not show any anemia. Yourplatelets are within normal range. I am still waiting for a couple more hormone labs. It may take another week for thoseto come back. I will follow up with you once they come in. Your cholesterol is within normal range and at a level which a cholesterol medication would not be recommended at this time. I would recommend that you continue working on diet and exercise to maintain well controlled cholesterol. Cholesterol T.I.P.S. SheetTools Important to Patient SuccessHow do cholesterol lowering medications work?High cholesterol increasesyour risk of heart disease. Cholesterol comes from our bodies as well as from foods we eat. Total blood cholesterol includes HDL, LDL and triglycerides. LDL, or bad cholesterol, causes cholesterolto build up in the elias of your arteries. In contrast, HDL, or good cholesterol helps your body get rid of bad cholesterol.Medi cations called statins decrease this risk by lowering your cholesterol level. Examples of statinsinclude simvastatin, pravastatin, and atorvastatin.Tips for lowering your cholesterolDiet and physical activity are very important. Your medication will be more effective if it is combined with dailyphysical activity and a diet low in saturated fat and cholesterol.Take your medication every day. Do not stop taking or change you r dose without talking to your doctor. Medication works best when taken at bedtime.Cholesterol and liver function tests are needed. Tell your doctor and pharmacist about your other medications. Some medications, and grapefruit juice, can interact with a statin.Are you at your LDL goal? My LDL is LDL, Calculated (mg/dL) Date Value 09/14/2022 122 My LDL goal is <130Know your LDL cholesterol goal!If you have diabetes or heart disease, your LDL goal is below 100. If you don't have diabetes or heart disease, but you have two to five of the risk factors below, your LDL goal is less than 130. If you have zero or one risk factor, your LDL goalis less than 160.Risk factors include:men 45 and older and women 55 and olderhigh blood pressuresmokingHDL (good cholesterol ) less than 40father or brother under 55, mother or sister under 65 who has had a heart attack or strokeIf your HDL is more than 60, subtract one risk factor.Possible side effectsDiarrhea or constipationMuscle aches, pains or weakness - if this occurs, contact your doctor right away.Most people have no side effects, but some may have one or more. Call your doctor or pharmacist if side effects become bothersome.Nkechi Pollock MD * Norma Liriano Xrwcomm - 08/18/2023 3:57 PM CDT The following lab order(s) may be associated with the following Patient Result Comment (Entered by Priti Pollock MD at 09/14/2022 9:42 PM): HGB A1C Fany, Your A1c shows that you do not have diabetes.Your thyroid test was within normal range and shows that you do not have thyroid disease. Your FSH shows you are not in menopause. Your estrogen isat the low end of normal. Your progesterone is low. Your electrolytes are within normal range, yourkidney function is normal.Your hemoglobin is within normal range and does not show any anemia. Yourplatelets are within normal range. I am still waiting for a couple more hormone labs. It may take another week for thoseto come back. I will follow up with you once they come in. Your cholesterol is within normal range and at a level which a cholesterol medication would not be recommended at this time. I would recommend that you continue working on diet and exercise to maintain well controlled cholesterol. Cholesterol T.I.P.S. SheetTools Important to Patient SuccessHow do cholesterol lowering medications work?High cholesterol increasesyour risk of heart disease. Cholesterol comes from our bodies as well as from foods we eat. Total blood cholesterol includes HDL, LDL and triglycerides. LDL, or bad cholesterol, causes cholesterolto build up in the elias of your arteries. In contrast, HDL, or good cholesterol helps your body get rid of bad cholesterol.Medi cations called statins decrease this risk by lowering your cholesterol level. Examples of statinsinclude simvastatin, pravastatin, and atorvastatin.Tips for lowering your cholesterolDiet and physical activity are very important. Your medication will be more effective if it is combined with dailyphysical activity and a diet low in saturated fat and cholesterol.Take your medication every day. Do not stop taking or change you r dose without talking to your doctor. Medication works best when taken at bedtime.Cholesterol and liver function tests are needed. Tell your doctor and pharmacist about your other medications. Some medications, and grapefruit juice, can interact with a statin.Are you at your LDL goal? My LDL is LDL, Calculated (mg/dL) Date Value 09/14/2022 122 My LDL goal is <130Know your LDL cholesterol goal!If you have diabetes or heart disease, your LDL goal is below 100. If you don't have diabetes or heart disease, but you have two to five of the risk factors below, your LDL goal is less than 130. If you have zero or one risk factor, your LDL goalis less than 160.Risk factors include:men 45 and older and women 55 and olderhigh blood pressuresmokingHDL (good cholesterol ) less than 40father or brother under 55, mother or sister under 65 who has had a heart attack or strokeIf your HDL is more than 60, subtract one risk factor.Possible side effectsDiarrhea or constipationMuscle aches, pains or weakness - if this occurs, contact your doctor right away.Most people have no side effects, but some may have one or more. Call your doctor or pharmacist if side effects become bothersome.Nkechi Pollock MD documented in this encounter Plan of Treatment Not on file documented as of this encounter Visit Diagnoses Diagnosis History of PCOS Personal history of other genital system and obstetric disorders documented in this encounter Care Teams Manager Engagement Relationship Specialty Start Date End Date Priti Pollock MD [address] [place] [address] PCP - General Family Practice 03/23/22 documented as of this encounter
--- OUTSIDE RECORDS SUMMARY | 2023-09-29 01:09 | XMS_ITS | Clinical Summary ---
Author Organization [facility] Address [place], [place] [address] Care Team Providers Care Adjuster Leader Name Role Phone Unavailable Primary Care Provider Unavailabl e Allergies No known active allergies Medications Medication Sig Dispensed Refills Start Date End Date Status malathion 0.5 % lotionIndications:He ad lice Apply to once scalp, leave on for 8-12 hours, and repeat application 1 week later. 59 mL 04/03/2021 Active Social History Tobacco Use Types Packs/Day Years Used Date Smoking Tobacco: Never Smokeless Tobacco: Never Sex and Gender Information Value Date Recorded Sex Assigned at Not on file Gender Identity Not on file Sexual Orientation Not on file Obstetrics History Plan of Treatment Health Maintenance Due Date Last Done Comments Tdap 1996 Depression screening for age 12+ 1997 HIV for age 15-65 2000 BMI (ht and wt on same day) for age 18+ 2003 Hepatitis C screening for ag e 18-79 2003 Tetanus booster 2005 Pap test for age 21-65 2006 COVID-19 vaccine series ( season) 2022 03/08/2021, 07/25/2020, 07/04/2020 Influenza for age 9-49 12/08/2023 Pneumococcal series for age 6-64 Aged Out No longer eligible b ased on patient's age to complete this topic
--- OUTSIDE RECORDS SUMMARY | 2023-09-29 01:09 | XMS_ITS | Referral Summary ---
Author Organization [facility] Address [address] [place] [id number] Care Team Providers Care Low Pressure Firer Name Role Phone Priti Castano MD Primary Care Provider + Social History Tobacco Use Types Packs/Day Years Used Date Smoking Tobacco: Never Assessed Adolescent Education Answer Date Record ed Getting School Help Needed Not on file 12/29 Sex and Gender Information Value Date Recorded Sex Assigned at Not on file Gender Identity Not on file Sexual Orientation Not on file Plan of Treatment Not on file Care Teams Low Pressure Firer Relationship Specialty Start Date End Date Priti Castano MD [address] [place] [facility] [address] PCP - General 01/16/23
== END 2023-09-29 02:09 | disposition home or self-care (01) ==
PROVIDERS: Emergency Provider Family Medicine
DX: S93.402A Sprain of unspecified ligament of left ankle, initial encounter (principal); B30.9 Viral conjunctivitis, unspecified; W10.9XXA Fall (on) (from) unspecified stairs and steps, initial encounter
CPT/HCPCS: 73610; 99283; 99284